=== PATIENT | male | born 1960 | race Caucasian/White ===

== ENCOUNTER 2024-02-04 21:42 | Emergency (ER) | payer OTHER ==
[2024-02-04] MEDS ORDERED: HYDROcodone/Acetaminophen 5/325 mg Tablet ONE (21:55)
[2024-02-04] MEDS ORDERED: prednisoLONE 15 MG/5 ML UDCUP ONE (22:34)
== END 2024-02-05 01:22 ==
LOC: NAV ERS 21:42
DX: S82.145A Nondisplaced bicondylar fracture of left tibia, initial encounter for closed fracture (principal); M25.562 Pain in left knee; E78.2 Mixed hyperlipidemia; W17.89XA Other fall from one level to another, initial encounter
CPT/HCPCS: J7510